=== PATIENT | male | born 1980 | race Caucasian/White ===

== ENCOUNTER 2022-06-30 14:07 | Emergency (ER) | payer MEDICAID, SELFPAY ==
[2022-06-30] VITALS (20 sets, daily range): BP systolic 126–154; BP diastolic 81–104; PULSE 70–112; RESP 16; TEMP 36.1; O2SAT 95–99
--- NOTE | 2022-06-30 14:15 | CT_ITS ---
Final Report Patient: DAYNE JOHANSEN Facility:?[facility] Patient ID:?[id number] Site Patient ID:?[id number]. Site :?[id number] Study:?CT Head w/o Contrast-06/30/2022 2:30:08 PM Ordering Physician:Pedro Kwon Final Report: INDICATION : Status post fall. Trauma. TECHNIQUE: Head CT without contrast. COMPARISON: None. FINDINGS: The CSF spaces in brain parenchyma density are within normal limits. No intracranial hemorrhage or mass effect is identified. No abnormal intra-axial or extra-axial fluid collections are present. The paranasal sinuses and mastoid air cells are well aerated. The orbits are unremarkable. There is an impacted fracture of the right nasal bone which is deviated to the left. This is of uncertain age. Correlate clinically. IMPRESSION: 1. No acute intracranial abnormality. 2. Impacted and displaced fracture of the right nasal bone of uncertain age. Please note that all CT scans at this facility use dose modulation, iterative reconstruction, and/or weight-based dosing when appropriate to reduce radiation dose to as low as reasonably achievable. Dictated by Boubacar Link MD @ 06/30/2022 3:02:21 PM (Electronic Signature)
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
[2022-06-30 14:38] LABS: Lactate* 1.9 mmol/L (0.5-1.9)
[2022-06-30 14:58] LABS: Albumin* 4.8 g/dL (3.3-5.0); Chloride* 109 mmol/L (96-114); Potassium* 3.3 mmol/L (3.6-5.1); Sodium* 141 mmol/L (135-149)
[2022-06-30 14:59] LABS: Creatinine* 0.9 mg/dL (0.5-1.5); Estimated Glomerular Filt Rate 109 ml/min
[2022-06-30 15:00] LABS: Alanine Aminotransferase* 26 U/L (4-50); Alkaline Phosphatase* 34 U/L (40-150); Aspartate Amino Transferase* 33 U/L (12-35); Bilirubin Direct* 0.2 mg/dL (0.0-0.5); Bilirubin Total* 0.8 mg/dL (0.1-1.5); Blood Urea Nitrogen* 12 mg/dL (5-24); Calcium* 8.6 mg/dL (8.4-10.6); Carbon Dioxide* 25 mmol/L (20-32); INR 0.93 (0.91-1.10); Lipase* 95 U/L (23-300); Total Protein* 7.7 g/dL (6.0-8.3)
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
[2022-06-30 15:04] LABS: Acetaminophen* < 10.0 ug/mL (10.0-30.0); C Reactive Protein* < 0.5 mg/dL (0.5-1.0); Ethanol* < 0.01 % (0.01-0.03); Salicylate* < 1.0 mg/dL (1.0-10)
[2022-06-30 15:12] LABS: Glucose* 115 mg/dL (60-115)
[2022-06-30 15:25] LABS: Troponin I* < 0.01 ng/mL (0.01-0.04)
[2022-06-30 15:28] LABS: SARS PCR* Negative SARS-CoV-2 (Negative)
[2022-06-30 15:36] LABS: Basophils Absolute Auto 0.02 K/uL (0.00-0.30); Basophils Percent Auto 0.4 % (0.0-3.0); Eosinophils Absolute Auto 0.03 K/uL (0.00-0.50); Eosinophils Percent Auto 0.6 % (0.0-7.0); Hematocrit 44.2 % (37.0-53.0); Hemoglobin* 15.3 gm/dL (13.5-17.5); Immature Granulocytes Abs Auto 0.01 K/uL (0.00-0.30); Immature Granulocytes Pct Auto 0.2 %; Lymphocytes Absolute Auto 1.66 K/uL (0.90-2.90); Lymphocytes Percent Auto 33.2 % (20-44); Mean Corpuscular HGB Conc 35 gm/dL (32-36); Mean Corpuscular Hemoglobin 31 pg (26-34); Mean Corpuscular Volume 89 fL (80-100); Monocytes Percent Auto 6.2 % (0.0-11.0); Neutrophils Absolute Auto 2.97 K/uL (1.7-7.0); Neutrophils Percent Auto 59.4 % (42.0-72.0); Platelet Count* 215 K/uL (140-440); RDW Coefficient of Variation % 11.8 % (11.5-15.5); Red Blood Count 4.98 m/uL (4.30-5.90)
[2022-06-30 15:37] LABS: Slide Review Reflex No
[2022-06-30 16:57] LABS: Erythrocyte SedimentationRate* <7 mm/hr (2-15)
== END 2022-06-30 16:06 | disposition home or self-care (01) ==
PROVIDERS: Emergency Provider Family Medicine; PCP Family Medicine
DX: S06.0X1A Concussion with loss of consciousness of 30 minutes or less, initial encounter (principal)
CPT/HCPCS: 36415; 70450; 72125; 80048; 80076; 80143; 80179; 80306; 81001; 82077; 83605; 83690; 84443; 84484; 85025; 85610; 85651; 86140; 87086; 87635; 93005; 94761; 99284; 99285; 99291

== ENCOUNTER 2023-10-16 05:52 | Emergency (ER) | payer MEDICAID, SELFPAY ==
[2023-10-16 05:59] VITALS: BP 147/100; PULSE 104; RESP 18; TEMP 36.7; O2SAT 99; BMI 27.0
--- NOTE | 2023-10-16 06:17 | ED_ITS ---
HPI - General Adult General Date Seen: 10/16/23 Chief complaint: Sore Throat Stated complaint: Sore throat Time Seen by Provider: 10/16/23 06:04 Source: patient Mode of arrival: ambulatory Limitations: no limitations History of Present Illness HPI narrative: Patient is a 43-year-old male presenting to the emergency department for sore throat. Sore throat has been life the past few days and initially was only when he would small but noticed yesterday he would notice a sore throat all the time. In that time went to the clinic and had a strep test done that was negative. Denies any voice changes, difficulty swallowing, shortness of breath, fevers, chills, weakness. States the pains feels a good radiates to his left ear. Most the pain is on left side of his throat. States his son has similar symptoms year ago was given prednisone which helped resolve the symptoms. Initially ibuprofen helped resolve the symptoms completely but states is not helping today. Related Data Home Medications ?Medication ?Instructions ?Recorded ?Confirmed No Known Home Medications 06/30/22 10/15/23 Allergies Allergy/AdvReac Type Severity Reaction Status Date / Time No Known Drug Allergies Allergy Verified 10/15/23 12:16 Review of Systems Narrative: Pertinent systems reviewed and are negative unless stated HPI PFSH PFSH Social History Smoking Status: Unknown if ever smoked How often do you have a drink containing alcohol: 4 or more times a week How often do you have six or more drinks on one occasion: Daily or almost daily AUDIT-C Alcohol total score: 8 Non-prescribed substance use: denies use service: No Exam Narrative: Exam Narrative: Const: Well-nourished, Well-developed, in mild distress Eyes: PERRL, no conjunctival injection, and symmetrical lids HENT: Atraumatic external nose and ears. Moist mucous membranes. Uvula midline, no tonsillar exudates or swelling. No swelling noted under tongue, tympanic membranes normal bilaterally Neck: Symmetric, trachea midline, No thyromegaly. No tenderness to palpation MSK:Extremities w/o deformity, Normal Active ROM Skin: Warm, Dry. No rashes or lesions. Neuro: Normal Muscle tone, No focal neurological deficits. Psych: Awake, Alert, & Oriented x3. Appropriate mood and affect. Const: Vital Signs, click to edit/add: Vital Signs - 24 hr 10/16/23 05:59 Temperature 98.0 F Pulse Rate [Pulse Oximeter] 104 H Respiratory Rate 18 Blood Pressure [Le ft Forearm] 147/100 H Pulse Oximetry 99 Oxygen Delivery Me thod Room Air Course Vital Signs Vital signs: Initial Vital Signs Temperature 98.0 F 10/16/23 05:59 Temperature Source Temporal Artery Scan 10/16/23 05:59 Pulse Rate 104 H 10/16/23 05:59 Respiratory Rate 18 10/16/23 05:59 Blood Pressure 147/100 H 10/16/23 05:59 Blood Pressure Mean 115 H 10/16/23 05:59 Blood Pressure Position Sitting 10/16/23 05:59 Pulse Oximetry 99 10/16/23 05:59 Oxygen Delivery Method Room Air 10/16/23 05:59 Vital Signs Temperature 98.0 F 10/16/23 05:59 Pulse Rate 104 H 10/16/23 05:59 Respiratory Rate 18 10/16/23 05:59 Blood Pressure 147/100 H 10/16/23 05:59 Pulse Oximetry 99 10/16/23 05:59 Oxygen Delivery Method Room Air 10/16/23 05:59 Temperature 98.0 F 10/16/23 05:59 Pulse Rate 104 H 10/16/23 05:59 Respiratory Rate 18 10/16/23 05:59 Blood Pressure 147/100 H 10/16/23 05:59 Pulse Oximetry 99 10/16/23 05:59 Oxygen Delivery Method Room Air 10/16/23 05:59 Medical Decision Making [facility] Narrative Medical decision making narrative: Patient is a 43-year-old male presenting to the emergency department for sore throat. Patient is not showing signs of peritonsillar abscess, Kimo angina, retropharyngeal abscess,Lemierre disease or any other concerning oral pharynx or deep neck space abscesses. Imaging is not necessary. I will give a dose of Decadron. Strep test is already been done and has been negative. I do not believe it is necessary to do a COVID/flu/RSV swab. I did give the patient return precautions. He is agreeable to this plan will be discharge. This is likely a viral pharyngitis Discharge Plan Discharge Clinical Impression: Pharyngitis Patient Disposition: Home, Self-Care Condition: Stable Instructions: Pharyngitis (ED) Additional Instructions: Continue to take ibuprofen for your sore throat. This is likely a viral pharyngitis but he should be re-evaluated if it becomes hard to breathe, you notice swelling under your tongue, your voice changes, or any other concerning abnormalities. Prescriptions: No Action No Known Home Medications Follow Up/Referrals: Zeyad Arrington MD [Primary Care Provider] - Stand Alone Forms: Source Audio Info Instructions
[2023-10-16] MEDS: dexAMETHasone 4 MG TABLET 10 MG PO (06:24)
== END 2023-10-16 06:30 | disposition home or self-care (01) ==
PROVIDERS: Emergency Provider Student in an Organized Health Care Education/Training Program; PCP Family Medicine
DX: J02.9 Acute pharyngitis, unspecified (principal)
CPT/HCPCS: 99282; 99283; A9270